=== PATIENT | male | born 1985 | race Caucasian/White ===

== ENCOUNTER 2019-06-26 23:15 | Emergency (ER) | payer OTHER, SELFPAY ==
--- NOTE | ~2019-06-26 | CT_ITS ---
EXAMINATION: CT abdomen pelvis wo con DATE: 06/27/2019 00:40 INDICATION: Right flank pain. Hematuria. TECHNIQUE: Computed tomography (CT) of the abdomen and pelvis was performed without intravenous contr ast. Automated exposure control and iterative reconstruction technique were employed. The dose-length product was 282.62 mGy-cm. COMPARISON: None. FINDINGS: The visualized portions of the lung bases demonstrate mild groundglass opacities in left lo wer lobe, likely inflammation or infection. No pleural effusion. The heart size is normal. No pericar dial effusion. The liver, gallbladder, spleen, pancreas, and adrenal glands are normal. There are 3 s tones in right kidney measuring up to 4 mm. There is mild right hydronephrosis. There is a 5 mm stone in proximal right ureter. There is a 1 mm stone in left kidney. The prostate is mildly enlarged. The re are no dilated loops of bowel. The appendix is normal. There are no pathologically enlarged lymph nodes. There is no free intraperitoneal fluid. There are chronic bilateral L5 pars defects. IMPRESSION: 1. 5 mm stone in proximal right ureter with mild right hydronephrosis. 2. Small bilateral nonobstructing kidney stones. Reviewed, dictated and finalized at location A. [employer]
--- NOTE | 2019-06-26 23:21 | ED.BACK ---
HPI - Back Pain/Injury General Chief Complaint: Back Pain/Injury Stated Complaint: right lower back pain Time Seen by Provider: 06/26/19 23:21 Source: patient Mode of arrival: ambulatory Limitations: no limitations History of Present Illness HPI Narrative: 34 year old man comes in today complaining of right flank pain that radiates to his right testicle and that started at approximately 7:00 a.m. this morning. He took some ibuprofen this morning but nothing since. He states his pain is been constant and he has had vomiting. He has had no hematuria or dysuria, chest pain, fever or prior similar symptoms. He has recently been treated with several rounds of antibiotics for an ear infection and bronchitis. MD elicited complaint: back pain Onset (ago): hour(s) (16) Timing: constant Severity: severe Similar Symptoms Previously: No Quality: sharp Location: right flank Radiation: groin Exacerbating factors: none Relieving factors: none and movement Work related injury: No Related Data Allergies Allergy/AdvReac Type Severity Reaction Status Date / Time Penicillins Allergy Unknown Verified 06/26/19 23:29 Review of Systems Constitutional: Constitutional: Denies chills, Denies fever(s) and Denies weakness Eyes: Eyes: Denies change in vision and Denies photophobia ENT: Denies dysphagia, Denies nasal congestion and Denies sore throat Cardiovascular: Cardiovascular: Denies chest pain and Denies radiating jaw, neck or arm pain Respiratory: Respiratory: Reports cough, Denies dyspnea and Denies wheezing Gastrointestinal: Gastrointestinal: Reports as per HPI, Reports abdominal pain, Denies diarrhea, Reports nausea and Reports vomiting Genitourinary: Genitourinary: Denies hematuria, Denies dysuria and Denies urinary frequency Musculoskeletal: Musculoskeletal: Reports back pain, Denies arthralgias, Denies joint swelling and Denies muscle cramps Integumentary/Breasts: Skin/Breast: Denies pruritus, Denies erythema and Denies rash Neurologic: Denies vertigo, Denies dizziness and Denies syncope Psychiatric: Psychiatric: Denies anxiety and Denies depression Endocrine: Endocrine: Denies polydipsia and Denies polyuria Hematologic/Lymphatic: Hematologic/Lymphatic: Denies easy bleeding and Denies easy bruising Allergic/Immunologic: Allergic/Immunologic: Denies lip swelling and Denies wheezing PMFSH Social History Social History Smoking status: Never smoker Alcohol intake: current Substance use: never Living arrangements: with family Exam Const: General: healthy appearing and alert Orientation/consciousness: patient oriented x3 Limitations: no limitations Other: moderate to severe acute distress. HENMT: Ears: TM's normal bilaterally and EAC's normal Mouth: Yes Normal oral and palatal mucosa present and Yes moist mucous membranes Throat: posterior oropharynx normal Eyes: Conjunctivae: conjunctivae normal Pupils: Equal, round and reactive pupils present EOM: EOMs intact bilaterally Resp: Effort & Inspection: normal respiratory effort and not labored Auscultation: clear to auscultation bilaterally, no rales, no rhonchi and no wheezes Cardio: Rate: regular rate Rhythm: regular rhythm Heart sounds: no murmurs GI: Inspection: non-distended Auscultation: normal bowel sounds Other: Tenderness to palpation of the right flank. no right lower quadrant tenderness. : Penis: Yes normal penis and No Genital lesions present Scrotum: scrotum normal Testes: epididymides normal, no testicular swelling and no testicular tenderness Skin: General skin exam: normal color, no jaundice and no pallor Rashes: no rashes Neuro: General: patient oriented x3, moves all extremities, no focal motor deficits and CN's II-XI intact bilaterally Extrem: General: normal to inspection and no clubbing, cyanosis or edema Psych: Appearance: grossly normal and well kempt Mental Status: m
[2019-06-26 23:24] VITALS: BP 127/89; PULSE 82; RESP 18; TEMP 36.6; O2SAT 99
[2019-06-26] MEDS: ONDANSETRON INJ 4 MG/2 ML VIAL IV PUSH (23:38)
[2019-06-26] MEDS: KETOROLAC 30 MG/ML VIAL (*BKC) IV PUSH (23:39)
[2019-06-26] MEDS: SODIUM CHLORIDE 0.9% IV 1,000 ML 999 ML IV CONT (23:39)
[2019-06-26] MEDS: HYDROMORPHONE HCL 2 MG/ML VIAL 0.5 MG IV PUSH (23:40)
[2019-06-26 23:55] LABS: Basophils Absolute Auto 0.03 K/mm3 (0.00-0.10); Basophils Percent Auto 0.2 % (0.0-1.0); Eosinophils Absolute Auto 0.01 K/mm3 (0.02-0.50); Eosinophils Percent Auto 0.1 % (1.0-6.0); Hematocrit 41.5 % (40.0-54.0); Hemoglobin 14.3 g/dL (14.0-18.0); Immature Granulocyte Absolute 0.06 K/mm3 (0.00-0.00); Immature Granulocyte Percent A 0.4 % (0.0-0.0); Lymphocytes Absolute Auto 1.05 K/mm3 (1.10-4.50); Lymphocytes Percent Auto 7.3 % (18.0-42.0); Mean Corpuscular HGB Conc 34.5 g/dL (32.0-36.0); Mean Corpuscular Hemoglobin 28.7 pg (27.0-31.0); Mean Corpuscular Volume 83.3 fL (78.0-102.0); Mean Platelet Volume 8.8 fl (8.7-11.0); Monocytes Absolute Auto 0.64 K/mm3 (0.10-0.90); Monocytes Percent Auto 4.5 % (2.0-11.0); Neutrophils Absolute Auto 12.6 K/mm3 (1.7-7.2); Neutrophils Percent Auto 87.5 % (50.0-70.0); Platelet Count Result 334 K/mm3 (150-420); Red Blood Count 4.98 M/mm3 (4.70-6.10); Red Cell Distribution Width 11.8 % (11.6-14.4); White Blood Count 14.3 K/mm3 (4.8-10.8)
[2019-06-27 00:04] VITALS: BP 136/74; PULSE 82
[2019-06-27 00:07] LABS: Alanine Aminotransferase 21 U/L (16-63); Alkaline Phosphatase 79 U/L (46-116); Aspartate Amino Transferase 14 U/L (15-37); Bilirubin,Total 0.4 mg/dL (0.00-1.00); Blood Urea Nitrogen 18 mg/dL (7-18); Calcium 8.3 mg/dL (8.5-10.1); Carbon Dioxide 26 mmol/L (21-32); Estimated CRCL calculation 80 ml/min; Estimated Glomerular Filt Rate > 60; Glucose 106 mg/dL (70-99); Lipase 116 U/L (73-393); Total Protein 7.2 g/dL (6.4-8.2)
[2019-06-27 00:09] LABS: Add Urine Microscopic? YES; Bilirubin Urine Negative (Negative); Blood Urine 3+ (Negative); Color Urine Orange (Yellow); Glucose Urine UA Trace (Negative); Ketones Urine Trace (Negative); Leukocyte Esterase Ur Negative (Negative); Nitrate Urine Positive (Negative); Protein Urine Trace (Negative)
[2019-06-27 00:15] LABS: Appearance Urine Sl Cloudy (Clear); Bacteria Urine 1+ /hpf; Squamous Epithelial Cell Urine Few /hpf (Few); WBC Urine None seen /hpf (0-3)
[2019-06-27 00:16] LABS: Anion Gap 13.1 mmol/L (7-16); Chloride 105 mmol/L (98-108); Osmolality Calculated 291 mOsm/kg (285-295); Potassium 4.1 mmol/L (3.5-5.1); Sodium 140 mmol/L (136-145)
[2019-06-27 00:16] LABS: Mucus Urine Few /lpf
--- NOTE | 2019-06-27 01:00 | PC.NURSE ---
Report from radiologist, spoke c ERP. Dr. López speaking c pt. about POC.
[2019-06-27 01:09] VITALS: BP 135/77; PULSE 77; RESP 20; O2SAT 98
[2019-06-27] MEDS: TAMSULOSIN HCL 0.4 MG CAPSULE PO (01:16)
[2019-06-29 12:56] LABS: HIV 1 P24 AG Negative (Negative); HIV 1/2 AB Negative (Negative)
[2019-07-04 04:31] LABS: Hepatitis B Surface Antigen Nonreactive (Nonreactive); Hepatitis C Signal to Cutoff 0.02 ratio (<1.00); Hepatitis C Virus Antibody Nonreactive (Nonreactive)
== END 2019-06-27 01:23 | disposition home or self-care (01) ==
PROVIDERS: Emergency Provider Emergency Medicine; PCP Family Medicine
DX: N20.1 Calculus of ureter (principal)
CPT/HCPCS: 36415; 74176; 80053; 81001; 83690; 85025; 86703; 87086; 96361; 96374; 96375; 99284; A9270; J1170; J1885; J2405; J7030